=== PATIENT | male | born 1980 | race Caucasian/White ===

== ENCOUNTER 2025-06-22 01:03 | Observation (INO) ==
[2025-06-22] MEDS ORDERED: IOPAMIDOL 100 ML BOTTLE IV ONE (01:04)
[2025-06-22] MEDS: ONDANSETRON 4 MG/2 ML VIAL IV ONE (01:18)
[2025-06-22] MEDS: KETOROLAC 15 MG/ML VIAL IV ONE (01:19)
[2025-06-22] MEDS: 0.9 % SODIUM CHLORIDE 1,000 ML IV ONE ×2 (01:21→03:15)
[2025-06-22] MEDS: HYDROmorphone 0.5 MG/0.5 ML SYRINGE IV ONE ×2 (01:39→03:13)
[2025-06-22 01:44] LABS: Basophils # (Auto) 0.03 K/mcL (0.00-0.30); Basophils % (Auto) 0.3 % (0.0-2.0); Eosinophils # (Auto) 0.02 K/mcL (0.00-0.70); Eosinophils % (Auto) 0.2 % (0.0-7.0); Hematocrit 43.9 % (40.1-51.0); Hemoglobin 14.9 g/dL (13.7-17.5); Lymphocytes # (Auto) 0.98 K/mcL (1.50-4.80); Lymphocytes % (Auto) 8.3 % (15.5-49.0); Mean Corpuscular HGB Conc 33.9 g/dL (31.0-36.0); Monocytes # (Auto) 0.48 K/mcL (0.10-0.90); Monocytes % (Auto) 4.0 % (1.0-12.0); Neutrophils % (Auto) 86.8 % (38.0-78.0); Platelet Count 221 K/mcL (140-440); RBC 5.16 M/mcL (4.63-6.08); WBC 11.9 K/mcL (4.5-11.0)
[2025-06-22 01:53] LABS: ALT/SGPT 77 U/L (<40); AST/SGOT 40 U/L (<40); Albumin 4.8 gm/dL (3.2-5.2); Albumin/Globulin Ratio 1.8 (1.0-2.3); Alkaline Phosphatase 46 U/L (39-117); Anion Gap 15.0 (8.0-16.0); Bilirubin,Total 0.6 mg/dL (0.1-1.0); Blood Urea Nitrogen 21 mg/dL (6-20); Calcium 9.7 mg/dL (8.6-10.4); Carbon Dioxide 22 mmol/L (22-30); Chloride 102 mmol/L (96-108); Globulin 2.7 gm/dL (2.2-3.7); Glucose 151 mg/dL (70-105); Potassium 3.9 mmol/L (3.3-5.1); Sodium 139 mmol/L (133-145)
[2025-06-22] MEDS ORDERED: ONDANSETRON 4 MG/2 ML VIAL IV PRN (03:40)
[2025-06-22] MEDS: PIPERACILLIN SODIUM/TAZOBACTAM 3.375 GM in DEXTROSE 5% IN WATER 100 ML IV SCH (04:26)
[2025-06-22] MEDS: 0.9 % SODIUM CHLORIDE 1,000 ML IV SCH (04:44)
[2025-06-22] MEDS: HYDROmorphone 0.5 MG/0.5 ML SYRINGE IV PRN (04:54)
[2025-06-22] MEDS ORDERED: GLYCOPYRROLATE 0.2 MG/ML VIAL IV ONE (09:20)
[2025-06-22] MEDS ORDERED: FAMOTIDINE/PF 20 MG/2 ML VIAL IV ONE (09:20)
[2025-06-22] MEDS ORDERED: DEXAMETHASONE 10 MG/ML VIAL ONE (09:20)
[2025-06-22] MEDS ORDERED: LIDOCAINE 2% PF 5 ML VIAL ONE (09:20)
[2025-06-22] MEDS ORDERED: METOCLOPRAMIDE 10 MG/2 ML VIAL ONE (09:20)
[2025-06-22] MEDS ORDERED: ONDANSETRON 4 MG/2 ML VIAL ONE (09:20)
[2025-06-22] MEDS ORDERED: SUCCINYLCHOLINE 200 MG/10 ML VIAL IV ONE (09:20)
[2025-06-22] MEDS ORDERED: KETOROLAC 30 MG/ML VIAL ONE (09:20)
[2025-06-22] MEDS ORDERED: ROCURONIUM 10 MG/ML ML IV ONE ×2 (09:20→10:19)
[2025-06-22] MEDS ORDERED: MIDAZOLAM 2 MG/2 ML VIAL ONE (09:21)
[2025-06-22] MEDS ORDERED: PROPOFOL 200 MG/20 ML VIAL IV ONE (09:21)
[2025-06-22] MEDS ORDERED: HYDROmorphone 0.5 MG/0.5 ML SYRINGE ONE (10:17)
[2025-06-22 10:24] LABS: Bilirubin,Urine NEGATIVE (Negative); Color,Urine YELLOW; Glucose,Urine (UA) NEGATIVE (Negative); Ketones,Urine NEGATIVE (Negative); Leukocyte Esterase,Urine NEGATIVE /uL (Negative); Mucus,Urine Few /hpf; PH,Urine 7.0 (5.0-9.0); Protein,Urine NEGATIVE (Negative); Specific Gravity,Urine 1.020 (1.000-1.035); Urobilinogen,Urine 0.2 mg/dL
[2025-06-22] MEDS ORDERED: DROPERIDOL 5 MG/2 ML VIAL IV PRN (10:32)
[2025-06-22] MEDS ORDERED: IPRATROPIUM/ALBUTEROL 3 ML AMPUL.NEB NEB PRN (10:32)
[2025-06-22] MEDS ORDERED: fentaNYL 100 MCG/2 ML VIAL IV PRN (10:32)
[2025-06-22] MEDS ORDERED: HYDROmorphone 0.5 MG/0.5 ML SYRINGE IV PRN (10:32)
[2025-06-22] MEDS ORDERED: SUGAMMADEX SODIUM 200 MG/2 ML VIAL IV ONE (10:34)
[2025-06-22] MEDS: ACETAMINOPHEN 1,000 MG/100 ML BAG IV ONE (10:59)
[2025-06-22] MEDS: ACETAMINOPHEN 1,000 MG/100 ML BAG IV SCH ×2 (11:21→16:12)
== END 2025-06-23 10:45 | disposition home or self-care (01) ==
LOC: MEDSUR 01:03 → ED 01:03 → MEDSUR 04:48
PROVIDERS: ADMIT Family Medicine Adult Medicine; ATTEND Family Medicine Adult Medicine
PROC: LAPAPPY (ICD-10-PCS; 2025-06-22 09:29)